=== PATIENT | male | born 1940 | race Two or more races ===

== ENCOUNTER → 2016-07-30 11:21 | Outpatient (CLI) | payer MEDICARE ==
[~2016-07-30 11:21] MED LIST: FLOMAX0.4 MG PO; HYZAAR 50-12.51 TAB PO; METOPROLOL TART50 MG PO; MOBIC7.5 MG PO; TEGRETOL XR100 MG PO
== END | disposition home or self-care (01) ==
LOC: D.CT 11:21
DX: R93.8 Abnormal findings on diagnostic imaging of other specified body structures (principal)

== ENCOUNTER 2017-06-18 13:50 | Inpatient (IN) | payer MEDICARE ==
[~2017-06-18] VITALS: Ht 165.1 cm; Wt 80.2 kg
[2017-06-18] MEDS ORDERED: BAYER CHEWABLE81 MG PO (14:25)
[2017-06-18] MEDS ORDERED: HYDROCODON-ACE1 EAC7 PO (14:27)
[2017-06-18] MEDS ORDERED: NEURONTIN 300300 MG PO (14:30)
[2017-06-18 15:20] VITALS: BP 115/87; Ht 165.1 cm; Wt 80.2 kg
[2017-06-18 15:22] LABS: BASOPHILS 0.2 % (0-2); EOSINOPHILS 2.2 % (0-7); HEMATOCRIT 42.4 % (42.0-54.0); HEMOGLOBIN 14.2 g/dL (13.5-17.5); IMMATURE GRANULOCYTES 0.2 % (0-5); LYMPHOCYTES 29.5 % (15-50); MCH 31.8 pg (26.0-34.0); MCHC 33.5 g/dL (31.0-37.0); MCV 95.1 fL (80.0-100.0); MEAN PLATELET VOLUME 10.7 fL (7.4-10.4); MONOCYTES 8.1 % (2-11); NEUTROPHILS 59.8 % (40-80); PLATELET COUNT 192 10x3/uL (130-400); RBC 4.46 10x6/uL (4.20-6.10); RDW 13.3 % (11.5-14.5); WBC 8.4 10x3/uL (4.8-10.8)
[2017-06-18 15:41] LABS: ALBUMIN 3.5 g/dL (3.4-5.0); ANION GAP 9.1 mmol/L (8-16); BILIRUBIN - TOTAL 0.38 mg/dL (0.2-1.3); CALCIUM 8.4 mg/dL (8.5-10.1); CARBON DIOXIDE 30.7 mmol/L (21.0-32.0); CREATININE - SERUM 1.1 mg/dL (0.6-1.3); POTASSIUM - SERUM 3.8 mmol/L (3.5-5.1); PROTEIN - SERUM 7.1 g/dL (6.4-8.2)
[2017-06-18 21:53] VITALS: BP 167/93
[2017-06-19 03:54] LABS: BASOPHILS 0.4 % (0-2); EOSINOPHILS 3.8 % (0-7); HEMATOCRIT 42.1 % (42.0-54.0); IMMATURE GRANULOCYTES 0.1 % (0-5); LYMPHOCYTES 35.3 % (15-50); MCH 31.3 pg (26.0-34.0); MCHC 33.3 g/dL (31.0-37.0); MEAN PLATELET VOLUME 10.4 fL (7.4-10.4); MONOCYTES 8.3 % (2-11); NEUTROPHILS 52.1 % (40-80); PLATELET COUNT 177 10x3/uL (130-400); RBC 4.48 10x6/uL (4.20-6.10); RDW 13.2 % (11.5-14.5); WBC 6.8 10x3/uL (4.8-10.8)
[2017-06-19 04:09] LABS: ALBUMIN 3.2 g/dL (3.4-5.0); BILIRUBIN - TOTAL 0.4 mg/dL (0.2-1.3); CALCIUM 8.6 mg/dL (8.5-10.1); CARBON DIOXIDE 28.9 mmol/L (21.0-32.0); CREATININE - SERUM 1.1 mg/dL (0.6-1.3); POTASSIUM - SERUM 3.9 mmol/L (3.5-5.1); PROTEIN - SERUM 6.4 g/dL (6.4-8.2)
[2017-06-19 05:40] VITALS: BP 151/89
[2017-06-19 07:55] VITALS: BP 156/91
[2017-06-19 11:37] VITALS: BP 141/74
[2017-06-19 15:37] VITALS: BP 137/81
[2017-06-19 20:26] VITALS: BP 139/75
[2017-06-20 03:47] LABS: BASOPHILS 0.3 % (0-2); HEMATOCRIT 41.1 % (42.0-54.0); HEMOGLOBIN 13.9 g/dL (13.5-17.5); IMMATURE GRANULOCYTES 0.1 % (0-5); LYMPHOCYTES 37.7 % (15-50); MCH 31.4 pg (26.0-34.0); MCHC 33.8 g/dL (31.0-37.0); MEAN PLATELET VOLUME 10.2 fL (7.4-10.4); MONOCYTES 8.8 % (2-11); NEUTROPHILS 50.1 % (40-80); PLATELET COUNT 174 10x3/uL (130-400); RBC 4.42 10x6/uL (4.20-6.10); RDW 13.2 % (11.5-14.5); WBC 7.2 10x3/uL (4.8-10.8)
[2017-06-20 04:03] LABS: ALKALINE PHOSPHATASE 46 U/L (46-116); ALT (SGPT) 26 U/L (10-68); BILIRUBIN - TOTAL 0.35 mg/dL (0.2-1.3); CALC OSMOLALITY 284 mosm/kg (275-300); CALCIUM 8.4 mg/dL (8.5-10.1); CHLORIDE - SERUM 106 mmol/L (98-107); GLUCOSE 97 mg/dL (74-106); POTASSIUM - SERUM 3.7 mmol/L (3.5-5.1); PROTEIN - SERUM 6.2 g/dL (6.4-8.2); SODIUM 142 mmol/L (136-145); UREA NITROGEN 19 mg/dL (7-18); eGFR NON AFRICAN AMERICAN 77 mL/min (90-120)
[2017-06-20 06:23] VITALS: BP 172/93
[2017-06-20] MEDS ORDERED: BAYER ASPIRIN325 MG PO (13:13)
== END 2017-06-20 13:53 | disposition home or self-care (01) | DRG 301 ==
LOC: OBSVTIME 13:50 → D.M2 13:50
PROVIDERS: Family Medicine
DX: I82.442 Acute embolism and thrombosis of left tibial vein (principal); I10 Essential (primary) hypertension; G14 Postpolio syndrome; Z87.891 Personal history of nicotine dependence; Z79.01 Long term (current) use of anticoagulants

== ENCOUNTER → 2018-08-09 10:59 | Outpatient (CLI) | payer MEDICARE ==
[~2018-08-09 10:59] MED LIST changes: +BAYER ASPIRIN325 MG PO; +BAYER CHEWABLE81 MG PO; +HYDROCODON-ACE1 EAC7 PO; +NEURONTIN 300300 MG PO
== END | disposition home or self-care (01) ==
LOC: D.CT 10:59
PROVIDERS: ATTEND Family Medicine
DX: R10.13 Epigastric pain (principal)

== ENCOUNTER → 2018-10-05 10:54 | Outpatient (CLI) | payer MEDICARE ==
--- NOTE | ~2018-10-05 | ST ---
PATIENT:GAYLE MC MEDICAL RECORD: [id number] SEX: M LOCATION:[facility] ORDER #: ADMISSION DATE: 10/05/18 AGE OF PATIENT: 78 REFERRING PHYSICIAN: INTERPRETING PHYSICIAN: MARIANELA WEBSTER MD DATE OF SERVICE: 10/05/2018 PROCEDURE: Nuclear stress test. INDICATIONS: Angina, shortness of breath, hypertension. He was exercised on standard Jacob protocol for 5 minutes, terminated due to achievement of maximum target heart rate response with 31 mCi of sestamibi injected at peak stress, 10 mCi used previously for rest images. FINDINGS: Gated SPECT reveals preserved ejection fraction at 83% with good wall motion and thickening and brightening throughout all segments. SPECT imaging Cardiolite was used as myocardial fusion agent. There is homogeneous uptake throughout all segments at rest and stress with no evidence of inducible ischemia or previous infarction. OVERALL IMPRESSION: 1. This is a normal nuclear stress test with no evidence of inducible ischemia or previous infarction. 2. Gated SPECT reveals a preserved ejection fraction at 83%. In this patient with ongoing symptomatology, the current scan does not suggest the presence of hemodynamically significant coronary artery disease. Evaluate noncardiac etiology of chest pain. TRANSINT:[id number] Voice Confirmation ID: [id number] DOCUMENT ID: [id number] MARIANELA WEBSTER MD CC: ROSA VINCENT DO [id number] DICTATION DATE: 10/05/18 1616 HAULAGE ENGINE OPERATOR: 10/06/18 1021 DEP CLI 10/05/18 [facility] [address] [place] [address]
--- NOTE | 2018-10-11 13:26 | EC ---
PATIENT:GAYLE MC DATE OF SERVICE: 10/05/18 SEX: M MEDICAL RECORD: [id number] DATE OF : 40 LOCATION:[facility] AGE OF PATIENT: 78 ADMISSION DATE: 10/05/18 REFERRING PHYSICIAN: INTERPRETING PHYSICIAN: BRANDEN KNOTT MD ECHOCARDIOGRAM REPORT ECHO CHARGES 4 ECHO COMPLETE Date: 10/05/18 CLINICAL DIAGNOSIS: MURMUR ECHOCARDIOGRAPHIC MEASUREMENTS (adult normal given) AC root (d.<3.7cm) 3.9 cm LV Septum d (<1.2 cm> 1.4 cm Valve Excursion 1.4 cm LV Septum (systole) 1.5 cm Left Atria (s.<4.0cm> 3.2 cm LVPW d(<1.2cm) 1.6 cm RV (d.<2.3cm) 3.6 cm LVPW (sytole) 1.8 cm LV diastole(<5.6CM) 4.6 cm MV E-F(>70mm/sec) cm LV systole 3.4 cm LVOT Diameter 2.1 cm MV exc.(>10mm) 1.6 cm Est.ejection fraction (50-75%) % DOPPLER: LVIT cm/sec A 78.0 cm/sec E 48.0 cm/sec LA cm/sec RVSP 21 mmHg LVOT 103 cm/sec AOP1/2T m/s Asc. Ao 115 cm/sec RVOT 76 cm/sec RA cm/sec PA 100 cm/sec AV Gradient Peak 5.32 mmHg AV Mean 2.39 mmHg AV Area 3.4 cm MV Gradient Peak 2.85 mmHg MV Mean 0.87 mmHg MV Area cm COMMENTS: Solution Director: Abilio SALGADO 3D Artist: 3 Dr. Littlejohn TAPE# PACS Pericardial Effusion N DATE OF SERVICE: 10/05/2018 Adequate 2-D, color-flow and spectral Doppler, and M-mode. LVH is present. LV internal dimensions are normal. Wall motion is normal. EF is greater than or equal to 55%. Aortic valve sclerosis without stenosis by Doppler interrogation. Left atrium is normal. Mitral valve shows no prolapse. Mild MR. Right-sided chambers are grossly normal. Trace TR. TRANSINT:[id number] Voice Confirmation ID: [id number] DOCUMENT ID: [id number] ECHOCARDIOGRAM REPORT [id number] FOSTER,GAYLE KNOTT,BRANDEN Fong MD at 1326 CC: [id number] DICTATION DATE: 10/06/18 1311 BEATER OUT: 10/06/18 1443 DEP CLI 10/05/18 [facility] [address] [place] [address]
== END | disposition home or self-care (01) ==
LOC: D.HCCARDIO 10:54
PROVIDERS: ATTEND Internal Medicine Interventional Cardiology
DX: R01.1 Cardiac murmur, unspecified (principal)

== ENCOUNTER → 2019-11-16 09:19 | Outpatient (CLI) | payer MEDICARE ==
--- NOTE | 2019-11-17 08:26 | EC ---
PATIENT:GAYLE MC DATE OF SERVICE: 11/16/19 SEX: M MEDICAL RECORD: [id number] DATE OF : 40 [facility] AGE OF PATIENT: 79 ADMISSION DATE: 11/16/19 REFERRING PHYSICIAN: INTERPRETING PHYSICIAN: BRANDEN KNOTT MD ECHOCARDIOGRAM REPORT ECHO CHARGES 4 ECHO COMPLETE Date: 11/16/19 CLINICAL DIAGNOSIS: HTN/CHEST PAIN ECHOCARDIOGRAPHIC MEASUREMENTS (adult normal given) AC root (d.<3.7cm) 3.9 cm LV Septum d (<1.2 cm> 1.8 cm Valve Excursion 1.4 cm LV Septum (systole) 1.9 cm Left Atria (s.<4.0cm> 3.4 cm LVPW d(<1.2cm) 1.5 cm RV (d.<2.3cm) 4.2 cm LVPW (sytole) 1.7 cm LV diastole(<5.6CM) 4.0 cm MV E-F(>70mm/sec) cm LV systole 2.3 cm LVOT Diameter 1.9 cm MV exc.(>10mm) cm Est.ejection fraction (50-75%) % DOPPLER: LVIT cm/sec A 86.0 cm/sec E 53.0 cm/sec LA cm/sec RVSP 15 mmHg LVOT 78 cm/sec AOP1/2T m/s Asc. Ao 73 cm/sec RVOT 83 cm/sec RA cm/sec PA 92 cm/sec AV Gradient Peak 2.77 mmHg AV Mean 1.47 mmHg AV Area 2.9 cm MV Gradient Peak 2.30 mmHg MV Mean 0.66 mmHg MV Area cm COMMENTS: Warrant Clerk: 2 TRINH SALGADO Primary Clinician: 3 Dr. Littlejohn TAPE# PACS Pericardial Effusion N DATE OF SERVICE: Adequate 2D, color flow imaging, spectral Doppler, and M-Mode. LVH is present. LV internal dimension is normal. Wall motion is normal. EF is greater than or equal to 55%. Aortic valve is tricuspid. No evidence of stenosis by Doppler interrogation. Left atrium is normal. Mitral valve shows no prolapse. Trace MR. Right-sided chamber is grossly normal. Trace TR. TRANSINT:[id number] Voice Confirmation ID: [id number] DOCUMENT ID: [id number] ECHOCARDIOGRAM REPORT [id number] GAYLE MC BRANDEN KNOTT MD at 0826 CC: [id number] DICTATION DATE: 11/16/19 1502 NUCLEAR FUELS RECLAMATION ENGINEER: 11/16/192056 DEP CLI 11/16/19 [facility] [id number] [place] [address]
== END | disposition home or self-care (01) ==
LOC: D.HCCECHO 09:19
PROVIDERS: ATTEND Internal Medicine Interventional Cardiology
DX: I10 Essential (primary) hypertension (principal)